=== PATIENT | female | born 1980 | race Caucasian/White ===

== ENCOUNTER 2017-03-14 06:10 | Day surgery (SDC) | payer OTHER | END 2017-03-14 13:25 | disposition home or self-care (01) | LOC: CIR.AMB 06:10 | DX: Z30.2 Encounter for sterilization (principal) ==

== ENCOUNTER 2020-11-06 09:06 | Day surgery (SDC) | payer OTHER | END 2020-11-06 14:25 | disposition home or self-care (01) | LOC: CIR.AMB 09:06 | PROVIDERS: ATTEND Orthopaedic Surgery | DX: M77.11 Lateral epicondylitis, right elbow (principal); Z20.822 Contact with and (suspected) exposure to COVID-19 ==